=== PATIENT | female | born 1985 | race Caucasian/White ===

== ENCOUNTER 2016-12-16 18:37 | Inpatient (IN) | payer BC ==
[~2016-12-16] VITALS: Ht 162.6 cm; Wt 90.0 kg
[2016-12-16] MEDS ORDERED: ONDANSETRON (ODT) 4 MG TAB ODT STA (20:29)
[2016-12-16] MEDS ORDERED: morphine 10 MG INJ IM ONE (20:30)
[2016-12-16] MEDS ORDERED: ONDANSETRON 4 MG INJ IV STA (20:49)
[2016-12-16] MEDS ORDERED: morphine 10 MG INJ IV ONE (21:00)
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
[2016-12-16 21:58] LABS: BASOPHIL # 0.1 10^3/ul (0.0-0.1); BASOPHILS % 0.3 % (0.0-2.0); EOSINOPHILS % 0.1 % (0.0-7.0); HEMATOCRIT 40.1 % (37.0-47.0); HEMOGLOBIN 13.5 g/dl (12.0-16.0); LYMPHOCYTES % 10.3 % (15.0-51.0); MEAN CORPUSCULAR HEMOGLOBIN 28.7 pg (29.0-33.0); MEAN CORPUSCULAR HGB CONC 33.8 g/dl (32.0-37.0); MEAN CORPUSCULAR VOLUME 84.8 fl (82.0-101.0); MEAN PLATELET VOLUME 9.1 fl (7.4-10.4); MONOCYTE # 0.4 10^3/ul (0.3-0.9); MONOCYTES % 1.9 % (0.0-11.0); NEUTROPHIL # 17.3 10^3/ul (1.6-7.5); NEUTROPHILS % 87.4 % (39.0-77.0); PLATELET COUNT 367 10^3/UL (140-440); RED BLOOD COUNT 4.72 10^6/ul (4.20-5.40); RED CELL DISTRIBUTION WIDTH 13.1 % (11.5-14.5); UNCORRECTED WBC 19.8 10^3/ul (4.8-10.8); WHITE BLOOD COUNT 19.8 10^3/ul (4.8-10.8)
[2016-12-16 21:59] LABS: CONDITION 1; INR 0.95; PARTIAL THROMBOPLASTIN TIME 29.8 Sec (25.0-35.0); PROTIME 12.7 Sec (12.2-14.2)
[2016-12-16 22:06] LABS: ALBUMIN 4.2 g/dl (3.3-4.9)
[2016-12-16 22:07] LABS: POTASSIUM 4.3 mmol/L (3.5-5.1)
[2016-12-16 22:09] LABS: ALBUMIN/GLOBULIN RATIO 1.16; BILIRUBIN,INDIRECT 0.1 mg/dl (0-1.1); BILIRUBIN,TOTAL 0.1 mg/dl (0.2-1.3); CREATININE 0.72 mg/dl (0.44-1.00); TOTAL PROTEIN 7.8 g/dl (6.1-8.1)
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
[2016-12-17] MEDS ORDERED: ACETAMINOPHEN 325 MG TAB PO PRN (01:00)
[2016-12-17] MEDS ORDERED: morphine 4 MG/ML VIAL IV STA (05:04)
[2016-12-17] MEDS: ONDANSETRON 4 MG INJ IV PRN ×2 (05:08→12:20)
[2016-12-17] MEDS: DEXTROSE 5%-0.45% NACL 1,000 ML IV SCH ×3 (07:36→21:10)
[2016-12-17] MEDS ORDERED: morphine 2 MG INJ IV PRN (08:00)
[2016-12-17] MEDS ORDERED: NACL 0.9% 3 ML SYG IV SCH (08:00)
[2016-12-17] MEDS ORDERED: ACETAMINOPHEN 650 MG SUPP PR PRN (08:00)
[2016-12-17] MEDS ORDERED: ONDANSETRON 4 MG INJ IV PRN (08:00)
[2016-12-17 10:18] LABS: BASOPHILS % 0.1 % (0.0-2.0); HEMATOCRIT 35.9 % (37.0-47.0); HEMOGLOBIN 12.2 g/dl (12.0-16.0); LYMPHOCYTES # 2.3 10^3/ul (0.8-2.9); LYMPHOCYTES % 19.1 % (15.0-51.0); MEAN CORPUSCULAR HEMOGLOBIN 28.7 pg (29.0-33.0); MEAN CORPUSCULAR VOLUME 84.6 fl (82.0-101.0); MEAN PLATELET VOLUME 8.7 fl (7.4-10.4); MONOCYTE # 0.7 10^3/ul (0.3-0.9); MONOCYTES % 5.8 % (0.0-11.0); NEUTROPHIL # 8.8 10^3/ul (1.6-7.5); PLATELET COUNT 334 10^3/UL (140-440); RED BLOOD COUNT 4.25 10^6/ul (4.20-5.40); RED CELL DISTRIBUTION WIDTH 13.3 % (11.5-14.5); UNCORRECTED WBC 11.8 10^3/ul (4.8-10.8); WHITE BLOOD COUNT 11.8 10^3/ul (4.8-10.8)
[2016-12-17 10:22] LABS: CONDITION 1
[2016-12-17 10:29] LABS: ALBUMIN 3.8 g/dl (3.3-4.9)
[2016-12-17 10:30] LABS: POTASSIUM 3.9 mmol/L (3.5-5.1)
[2016-12-17 10:32] LABS: ALBUMIN/GLOBULIN RATIO 1.11; BILIRUBIN,INDIRECT 0.2 mg/dl (0-1.1); BILIRUBIN,TOTAL 0.2 mg/dl (0.2-1.3); CREATININE 0.74 mg/dl (0.44-1.00); TOTAL PROTEIN 7.2 g/dl (6.1-8.1)
[2016-12-17 10:33] LABS: CALCIUM 8.6 mg/dl (8.4-10.2)
[2016-12-17] MEDS: PIPER-TAZO 3.375 GM IV (PMX) 100 ML IVPB SCH ×3 (11:21→23:40)
[2016-12-17] MEDS: morphine 4 MG/ML VIAL IV PRN ×2 (12:20→21:10)
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
[2016-12-17 14:01] VITALS: TEMP 98.4
[2016-12-17 15:06] VITALS: BP 122/79; PULSE 105; RESP 20
[2016-12-17 15:07] VITALS: Ht 162.6 cm; Wt 90.0 kg
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
[2016-12-17 21:49] VITALS: BP 147/75; RESP 20
--- NOTE | 2016-12-17 23:10 | RADRPT ---
PROCEDURE: CT of the right upper extremity without contrast CLINICAL INDICATION: Post traumatic right arm pain. Humerus fracture. TECHNIQUE: CT of the right upper extremity is performed from the proximal right humeral diaphysis through the mid the radius/ulna shaft at 2 mm sections without contrast media. Coronal and sagittal reformatted images are submitted. An additional 3-D series is submitted. CTDI = 36.91 mGy; DLP = 1 058.33 mGy-cm COMPARISON: X-ray left humerus 12/16/2016 FINDINGS: Osseous structures: The fracture lucency involving the medial aspect of the distal humeral diaphysi s courses in an oblique manner to breach the posterior and medial cortices consistent with comminuti on. The interposed fracture fragment triangular in morphology along the medial aspect at the fractu re site is estimated at 7 cm in cranial caudal dimension. On the axial images at the fracture site there are 3 separate fragments that are major in appearance including the mentioned separate fragmen t, the separation of the fragments estimated at 1 cm. The dominant distal fracture fragment has korey e a mild varus angulation of approximately 10 degrees. The additional fracture lucency courses in a longitudinal manner through the medial epicondyle and extends to the articular surface between the trochlea and capitellum. The radial head and proximal ulna are intact and there is no evidence of e lbow dislocation. Soft tissues: A small lipohemarthrosis is present and there is diffuse stranding of the subcutaneou s fat posterior to the elbow at the level of the joint. There is no evidence of focal hematoma or m uscular abnormality RPTAT:HJJR IMPRESSION: 1. There are 3 major fracture lucencies and 3 major fragments to the comminuted, mildly displaced, i ntra-articular distal right humerus fracture, the interposed fragment of approximately 7 cm in crani al caudal dimension is along the medial aspect at the fracture site and is from the proxim al and distal major fragments by approximately 1 cm. 2. Mild varus angulation of the major distal fragment. 3. Longitudinal fracture component extends into the elbow joint involving the articular surface betw een the capitellum and trochlea. 4. No evidence of fracture involving the proximal radius or ulna. David Oconnor, Physician Date Time Electronically viewed and signed by David Oconnor Physician on 12/17/2016 23:10 JR/
[2016-12-18] MEDS: DEXTROSE 5%-0.45% NACL 1,000 ML IV SCH ×3 (03:36→23:29)
[2016-12-18] MEDS: morphine 4 MG/ML VIAL IV PRN ×2 (04:18→10:24)
[2016-12-18] MEDS: PANTOPRAZOLE 40 MG INJ IV SCH (05:20)
[2016-12-18] MEDS: PIPER-TAZO 3.375 GM IV (PMX) 100 ML IVPB SCH ×4 (05:20→23:28)
[2016-12-18 07:08] LABS: BASOPHILS % 0.3 % (0.0-2.0); EOSINOPHILS % 0.2 % (0.0-7.0); HEMATOCRIT 34.7 % (37.0-47.0); HEMOGLOBIN 11.7 g/dl (12.0-16.0); LYMPHOCYTES # 2.3 10^3/ul (0.8-2.9); LYMPHOCYTES % 20.5 % (15.0-51.0); MEAN CORPUSCULAR HEMOGLOBIN 28.8 pg (29.0-33.0); MEAN CORPUSCULAR HGB CONC 33.7 g/dl (32.0-37.0); MEAN CORPUSCULAR VOLUME 85.3 fl (82.0-101.0); MEAN PLATELET VOLUME 8.8 fl (7.4-10.4); MONOCYTE # 0.7 10^3/ul (0.3-0.9); MONOCYTES % 6.5 % (0.0-11.0); NEUTROPHIL # 8.2 10^3/ul (1.6-7.5); NEUTROPHILS % 72.5 % (39.0-77.0); PLATELET COUNT 315 10^3/UL (140-440); RED BLOOD COUNT 4.06 10^6/ul (4.20-5.40); RED CELL DISTRIBUTION WIDTH 13.4 % (11.5-14.5); UNCORRECTED WBC 11.3 10^3/ul (4.8-10.8); WHITE BLOOD COUNT 11.3 10^3/ul (4.8-10.8)
[2016-12-18 07:16] LABS: CONDITION 1
[2016-12-18 07:21] LABS: POTASSIUM 3.5 mmol/L (3.5-5.1)
[2016-12-18 07:24] LABS: CREATININE 0.69 mg/dl (0.44-1.00); PHOSPHORUS 3.2 mg/dl (2.5-4.9)
[2016-12-18 07:25] LABS: CALCIUM 8.1 mg/dl (8.4-10.2); MAGNESIUM 2.1 mg/dl (1.7-2.5)
[2016-12-18 07:53] VITALS: BP 104/62; RESP 21
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
[2016-12-18 20:48] VITALS: BP 125/66; RESP 16
[2016-12-19] MEDS: morphine 4 MG/ML VIAL IV PRN ×3 (00:03→17:05)
[2016-12-19] MEDS: PIPER-TAZO 3.375 GM IV (PMX) 100 ML IVPB SCH ×4 (05:55→23:41)
[2016-12-19] MEDS: PANTOPRAZOLE 40 MG INJ IV SCH (05:56)
[2016-12-19 07:02] LABS: BASOPHIL # 0.1 10^3/ul (0.0-0.1); BASOPHILS % 0.4 % (0.0-2.0); EOSINOPHILS % 0.3 % (0.0-7.0); HEMATOCRIT 36.8 % (37.0-47.0); HEMOGLOBIN 12.4 g/dl (12.0-16.0); LYMPHOCYTES # 3.3 10^3/ul (0.8-2.9); LYMPHOCYTES % 26.1 % (15.0-51.0); MEAN CORPUSCULAR HEMOGLOBIN 28.8 pg (29.0-33.0); MEAN CORPUSCULAR HGB CONC 33.9 g/dl (32.0-37.0); MEAN PLATELET VOLUME 8.2 fl (7.4-10.4); MONOCYTE # 0.7 10^3/ul (0.3-0.9); MONOCYTES % 5.4 % (0.0-11.0); NEUTROPHIL # 8.5 10^3/ul (1.6-7.5); NEUTROPHILS % 67.8 % (39.0-77.0); PLATELET COUNT 304 10^3/UL (140-440); RED BLOOD COUNT 4.32 10^6/ul (4.20-5.40); RED CELL DISTRIBUTION WIDTH 13.1 % (11.5-14.5); UNCORRECTED WBC 12.5 10^3/ul (4.8-10.8); WHITE BLOOD COUNT 12.5 10^3/ul (4.8-10.8)
[2016-12-19 07:06] LABS: CONDITION 1
[2016-12-19 07:23] LABS: POTASSIUM 3.7 mmol/L (3.5-5.1)
[2016-12-19 07:26] LABS: CREATININE 0.69 mg/dl (0.44-1.00)
[2016-12-19 07:27] LABS: CALCIUM 8.2 mg/dl (8.4-10.2)
[2016-12-19 08:09] VITALS: BP 133/84; RESP 20
[2016-12-19] MEDS: DEXTROSE 5%-0.45% NACL 1,000 ML IV SCH ×3 (09:36→19:36)
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
[2016-12-19 21:37] VITALS: BP 128/80; RESP 16
[2016-12-20] VITALS (31 sets, daily range): BP systolic 107–151; BP diastolic 56–76; PULSE 66–116; RESP 6–29
[2016-12-20] MEDS: morphine 4 MG/ML VIAL IV PRN (02:30)
[2016-12-20] MEDS: PIPER-TAZO 3.375 GM IV (PMX) 100 ML IVPB SCH ×4 (05:55→22:56)
[2016-12-20] MEDS: PANTOPRAZOLE 40 MG INJ IV SCH (05:55)
[2016-12-20 05:56] LABS: BASOPHILS % 0.3 % (0.0-2.0); EOSINOPHILS # 0.1 10^3/ul (0.0-0.5); EOSINOPHILS % 0.5 % (0.0-7.0); HEMATOCRIT 34.9 % (37.0-47.0); HEMOGLOBIN 12.1 g/dl (12.0-16.0); LYMPHOCYTES % 24.5 % (15.0-51.0); MEAN CORPUSCULAR HEMOGLOBIN 29.3 pg (29.0-33.0); MEAN CORPUSCULAR HGB CONC 34.7 g/dl (32.0-37.0); MEAN CORPUSCULAR VOLUME 84.3 fl (82.0-101.0); MEAN PLATELET VOLUME 8.5 fl (7.4-10.4); MONOCYTE # 0.6 10^3/ul (0.3-0.9); MONOCYTES % 4.5 % (0.0-11.0); NEUTROPHIL # 8.6 10^3/ul (1.6-7.5); NEUTROPHILS % 70.2 % (39.0-77.0); PLATELET COUNT 337 10^3/UL (140-440); RED BLOOD COUNT 4.13 10^6/ul (4.20-5.40); RED CELL DISTRIBUTION WIDTH 12.8 % (11.5-14.5); UNCORRECTED WBC 12.2 10^3/ul (4.8-10.8); WHITE BLOOD COUNT 12.2 10^3/ul (4.8-10.8)
[2016-12-20] MEDS: DEXTROSE 5%-0.45% NACL 1,000 ML IV SCH ×2 (06:02→16:43)
[2016-12-20 06:03] LABS: POTASSIUM 3.7 mmol/L (3.5-5.1)
[2016-12-20 06:04] LABS: CONDITION 1
[2016-12-20 06:06] LABS: CREATININE 0.69 mg/dl (0.44-1.00)
[2016-12-20 06:07] LABS: CALCIUM 8.4 mg/dl (8.4-10.2)
[2016-12-20] MEDS ORDERED: MIDAZOLAM 1 MG/ML 2 ML INJ ONE ×3 (07:54→11:37)
[2016-12-20] MEDS ORDERED: ROPIVACAINE 0.5 % 30 ML VIAL ONE (07:55)
--- NOTE | 2016-12-20 07:58 | HPN ---
Date/Time of Note Date/Time of Note DATE: 12/20/16 TIME: 07:57 Interval H&P Admission Note Pt. seen H&P reviewed: No system changes KEON HSU MD Dec 20, 2016 07:58
[2016-12-20] MEDS ORDERED: POLYMYXIN/BACITRACIN 1L IRRIG ONE (08:16)
[2016-12-20] MEDS ORDERED: ONDANSETRON 4 MG INJ ONE (08:44)
[2016-12-20] MEDS ORDERED: PROPOFOL 20 ML ONE (08:44)
[2016-12-20] MEDS ORDERED: ROCURONIUM 50 MG INJ ONE ×4 (08:44→12:52)
[2016-12-20] MEDS ORDERED: METOCLOPRAMIDE 10 MG INJ ONE (08:44)
--- NOTE | 2016-12-20 08:46 | RADRPT ---
PROCEDURE: Chest x-ray CLINICAL INDICATION: Cough TECHNIQUE: Chest single view COMPARISON: None FINDINGS: The heart is normal in size. The pulmonary vessels are normal in caliber. The lungs are clear. Th e costophrenic angles are sharp. The visualized bony thorax is unremarkable. IMPRESSION: No acute cardiopulmonary disease. Low lung volumes No evidence of pneumothorax RPTAT: HH .Damián Moncada MD, MD Date Time Electronically viewed and signed by .Damián Moncada MD, on 12/20/2016 08:45 .W/
[2016-12-20] MEDS ORDERED: SUCCINYLCHOLINE CHLORIDE 100 MG/5 ML SYG IV ONE (08:50)
[2016-12-20] MEDS ORDERED: FENTAnyl 50 MCG/ML VIAL ONE (09:05)
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
[2016-12-20] MEDS ORDERED: CEFAZOLIN 1 GM INJ ONE (10:43)
[2016-12-20] MEDS ORDERED: MEPERIDINE 25 MG INJ IV PRN (12:00)
[2016-12-20] MEDS ORDERED: METOCLOPRAMIDE 10 MG INJ IV PRN (12:00)
[2016-12-20] MEDS ORDERED: DIPHENHYDRAMINE 50 MG INJ IV PRN (12:00)
[2016-12-20] MEDS ORDERED: ONDANSETRON 4 MG INJ IV PRN (12:00)
[2016-12-20] MEDS ORDERED: HYDROmorphONE (0.2 MG/ML) 10ML SYG IV PRN ×2 (12:00)
[2016-12-20 13:09] LABS: ADD UMIC NO; URINE BILIRUBIN (Dip) NEGATIVE (NEGATIVE); URINE BLOOD (Dip) NEGATIVE (NEGATIVE); URINE COLOR LT. YELLOW (YELLOW); URINE GLUCOSE (Dip) NEGATIVE (NEGATIVE); URINE KETONES (Dip) NEGATIVE (NEGATIVE); URINE LEUKOCYTE ESTERASE (Dip) NEGATIVE (NEGATIVE); URINE NITRITE (Dip) NEGATIVE (NEGATIVE); URINE TOTAL PROTEIN (Dip) NEGATIVE (NEGATIVE); URINE UROBILINOGEN (Dip) 1.0 E.U./dL (0.1-1.0)
[2016-12-20] MEDS ORDERED: NEOSTIGMINE 3 MG/3 ML SYRINGE ONE (14:42)
[2016-12-20] MEDS ORDERED: GLYCOPYRROLATE 0.4 MG INJ ONE (14:42)
[2016-12-20] MEDS ORDERED: NACL 0.9% 3 ML SYG IV SCH (15:00)
[2016-12-20] MEDS: HYDROmorphONE (0.2 MG/ML) 10ML SYG IV PRN ×2 (15:34→15:46)
[2016-12-20 15:42] LABS: BASOPHILS % 0.2 % (0.0-2.0); HEMATOCRIT 30.3 % (37.0-47.0); HEMOGLOBIN 10.3 g/dl (12.0-16.0); LYMPHOCYTES # 2.4 10^3/ul (0.8-2.9); LYMPHOCYTES % 12.5 % (15.0-51.0); MEAN CORPUSCULAR HEMOGLOBIN 28.7 pg (29.0-33.0); MEAN CORPUSCULAR HGB CONC 34.1 g/dl (32.0-37.0); MEAN CORPUSCULAR VOLUME 84.3 fl (82.0-101.0); MEAN PLATELET VOLUME 8.3 fl (7.4-10.4); MONOCYTE # 0.6 10^3/ul (0.3-0.9); MONOCYTES % 3.2 % (0.0-11.0); NEUTROPHIL # 16.4 10^3/ul (1.6-7.5); NEUTROPHILS % 84.1 % (39.0-77.0); PLATELET COUNT 387 10^3/UL (140-440); RED BLOOD COUNT 3.59 10^6/ul (4.20-5.40); UNCORRECTED WBC 19.5 10^3/ul (4.8-10.8); WHITE BLOOD COUNT 19.5 10^3/ul (4.8-10.8)
[2016-12-20 15:57] LABS: CONDITION 1
--- NOTE | 2016-12-20 16:08 | RADRPT ---
PROCEDURE: XR Elbow. CLINICAL INDICATION: Postoperative evaluation TECHNIQUE: 2 views of the right elbow performed. COMPARISON: None. FINDINGS: There is plate and screw fixation of the distal humerus and the proximal ulna with a cannulated scre w traversing the distal humerus transversely. Alignment is anatomic. There is soft tissue swelling and gas with medial skin james. IMPRESSION: 1. Plate and screw fixation of the distal humerus and proximal ulna as above. RPTAT: UU .Chevy Saxena MD, Date Time Electronically viewed and signed by .Chevy Saxena MD, on 12/20/2016 16:08 .K/
--- NOTE | 2016-12-20 16:11 | RADRPT ---
PROCEDURE: XR right humerus CLINICAL INDICATION: Postoperative evaluation TECHNIQUE: 3 views of the right humerus COMPARISON: Radiographs of the right humerus December 16, 2016 FINDINGS: There is plate and screw fixation of the distal humerus and the proximal ulna in anatomic alignment. There is surrounding soft tissue swelling and gas as well as skin james. No new fractures seen. IMPRESSION: Plate and screw fixation of the distal humerus and proximal ulna as above. RPTAT: UU .Chevy Saxena MD, MD Date Time Electronically viewed and signed by .Chevy Saxena MD, MD on 12/20/2016 16:11 .K/
--- NOTE | 2016-12-20 16:14 | RADRPT ---
PROCEDURE: Intraoperative imaging of the right elbow with fluoroscopy. CLINICAL INDICATION: Right elbow Intraoperative. TECHNIQUE: 8 images of the lumbar spine were obtained in the operating room with an image intensif ier. No radiologist was in attendance. 46 seconds of fluoroscopy time was used. COMPARISON: Radiographs of the right elbow December 16, 2016 FINDINGS: Intraoperative images show plate and screw fixation of the distal humerus and the proximal ulna. IMPRESSION: 1. Satisfactory intraoperative imaging of the right elbow. Please see separately dictated operativ e note for further evaluation. RPTAT: UU .Chevy Saxena MD, Date Time Electronically viewed and signed by .Chevy Saxena MD, on 12/20/2016 16:13 .K/
[2016-12-20] MEDS: CEFAZOLIN 1 GM/50 ML (PMX) 50 ML IVPB SCH ×2 (16:43→22:56)
[2016-12-20] MEDS: morphine 2 MG INJ IV PRN ×4 (18:09→23:56)
[2016-12-21] MEDS: DEXTROSE 5%-0.45% NACL 1,000 ML IV SCH ×2 (01:36→03:11)
[2016-12-21] MEDS: morphine 2 MG INJ IV PRN ×4 (01:38→16:08)
[2016-12-21] MEDS ORDERED: morphine (ER) 30 MG TAB PO ONE (02:30)
[2016-12-21] MEDS ORDERED: HYDROCODONE/APAP (10/325) TAB PO PRN (02:30)
[2016-12-21] MEDS: morphine 4 MG/ML VIAL IV PRN ×2 (03:11→08:15)
[2016-12-21] MEDS: PANTOPRAZOLE 40 MG INJ IV SCH (05:20)
[2016-12-21] MEDS: PIPER-TAZO 3.375 GM IV (PMX) 100 ML IVPB SCH ×4 (05:20→23:40)
[2016-12-21 06:31] LABS: BASOPHILS % 0.2 % (0.0-2.0); EOSINOPHILS % 0.1 % (0.0-7.0); HEMATOCRIT 25.1 % (37.0-47.0); HEMOGLOBIN 8.5 g/dl (12.0-16.0); LYMPHOCYTES # 1.9 10^3/ul (0.8-2.9); LYMPHOCYTES % 14.3 % (15.0-51.0); MEAN CORPUSCULAR HEMOGLOBIN 29.2 pg (29.0-33.0); MEAN CORPUSCULAR VOLUME 85.9 fl (82.0-101.0); MEAN PLATELET VOLUME 8.4 fl (7.4-10.4); MONOCYTE # 0.8 10^3/ul (0.3-0.9); MONOCYTES % 5.8 % (0.0-11.0); NEUTROPHIL # 10.7 10^3/ul (1.6-7.5); NEUTROPHILS % 79.6 % (39.0-77.0); PLATELET COUNT 330 10^3/UL (140-440); RED BLOOD COUNT 2.92 10^6/ul (4.20-5.40); RED CELL DISTRIBUTION WIDTH 13.5 % (11.5-14.5); UNCORRECTED WBC 13.4 10^3/ul (4.8-10.8); WHITE BLOOD COUNT 13.4 10^3/ul (4.8-10.8)
[2016-12-21 06:33] LABS: CONDITION 1
[2016-12-21 06:40] LABS: POTASSIUM 3.7 mmol/L (3.5-5.1)
[2016-12-21 06:43] LABS: CREATININE 0.63 mg/dl (0.44-1.00)
[2016-12-21 06:44] LABS: CALCIUM 7.4 mg/dl (8.4-10.2)
[2016-12-21] MEDS: CEFAZOLIN 1 GM/50 ML (PMX) 50 ML IVPB SCH (06:58)
[2016-12-21 08:21] VITALS: BP 101/58; PULSE 95; RESP 18
[2016-12-21] MEDS: morphine (ER) 30 MG TAB PO SCH ×2 (10:07→23:41)
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
--- NOTE | 2016-12-21 17:43 | PN ---
DATE: 12/21/2016 Afebrile. Considerable swelling involving the right upper extremity along with the pain. ____ exam ination of the neurovascular condition did not show any obvious neurologic compromise, so far. Post op x-rays of the right humerus and right elbow is satisfactory. Hemoglobin and hematocrit at this t inder is 8.5/25.11. We will keep the right upper extremity elevated to reduce the swelling as much as possible. We need to keep an eye for a while because of the severity of injury and the extensive n ature of the surgery. Dictated By: NOE HSU MD IK/NTS Conf#: [id number] DID#: [id number] CC: DARIO MICHEL MD;*EndCC*
[2016-12-21] MEDS: ACETAMINOPHEN 325 MG TAB PO PRN (19:00)
[2016-12-21 20:32] VITALS: BP 122/68; RESP 18
[2016-12-21 23:40] VITALS: BP 115/65; PULSE 84; RESP 20
[2016-12-22] MEDS: morphine 2 MG INJ IV PRN ×4 (00:42→06:22)
[2016-12-22 04:57] VITALS: BP 121/65; PULSE 92
[2016-12-22] MEDS: PIPER-TAZO 3.375 GM IV (PMX) 100 ML IVPB SCH ×4 (06:22→22:56)
[2016-12-22] MEDS: PANTOPRAZOLE (EC) 40 MG TAB PO SCH (06:22)
[2016-12-22 06:27] LABS: BASOPHIL # 0.1 10^3/ul (0.0-0.1); BASOPHILS % 0.4 % (0.0-2.0); EOSINOPHILS % 0.1 % (0.0-7.0); HEMATOCRIT 25.2 % (37.0-47.0); HEMOGLOBIN 8.6 g/dl (12.0-16.0); LYMPHOCYTES % 13.1 % (15.0-51.0); MEAN CORPUSCULAR HEMOGLOBIN 29.4 pg (29.0-33.0); MEAN CORPUSCULAR HGB CONC 34.3 g/dl (32.0-37.0); MEAN CORPUSCULAR VOLUME 85.7 fl (82.0-101.0); MEAN PLATELET VOLUME 8.2 fl (7.4-10.4); MONOCYTES % 6.5 % (0.0-11.0); NEUTROPHIL # 12.5 10^3/ul (1.6-7.5); NEUTROPHILS % 79.9 % (39.0-77.0); PLATELET COUNT 330 10^3/UL (140-440); RED BLOOD COUNT 2.95 10^6/ul (4.20-5.40); RED CELL DISTRIBUTION WIDTH 13.2 % (11.5-14.5); UNCORRECTED WBC 15.6 10^3/ul (4.8-10.8); WHITE BLOOD COUNT 15.6 10^3/ul (4.8-10.8)
[2016-12-22 06:29] LABS: CONDITION 1
[2016-12-22 06:48] LABS: POTASSIUM 3.8 mmol/L (3.5-5.1)
[2016-12-22 06:51] LABS: CREATININE 0.61 mg/dl (0.44-1.00)
[2016-12-22 06:52] LABS: CALCIUM 7.7 mg/dl (8.4-10.2)
[2016-12-22] MEDS: HYDROCODONE/APAP (5/325) TAB PO PRN ×2 (07:56→16:06)
[2016-12-22 08:55] VITALS: BP 111/66; RESP 22
[2016-12-22] MEDS: morphine (ER) 30 MG TAB PO SCH ×2 (09:00→21:14)
[2016-12-22] MEDS: BISACODYL (EC) 5 MG TAB PO PRN (16:30)
[2016-12-22] MEDS: morphine 4 MG/ML VIAL IV PRN (19:40)
[2016-12-22 20:18] VITALS: BP 117/68; RESP 20
[2016-12-22] MEDS: DOCUSATE SODIUM 100 MG CAP PO SCH (21:14)
[2016-12-22 22:00] VITALS: PULSE 107
[2016-12-22] MEDS: ACETAMINOPHEN 325 MG TAB PO PRN (22:54)
[2016-12-22 23:00] VITALS: PULSE 108
[2016-12-23] MEDS: PIPER-TAZO 3.375 GM IV (PMX) 100 ML IVPB SCH ×4 (05:12→22:54)
[2016-12-23] MEDS: PANTOPRAZOLE (EC) 40 MG TAB PO SCH (05:18)
[2016-12-23] MEDS: morphine 2 MG INJ IV PRN (05:18)
[2016-12-23 06:13] LABS: POTASSIUM 3.7 mmol/L (3.5-5.1)
[2016-12-23 06:15] LABS: CREATININE 0.57 mg/dl (0.44-1.00)
[2016-12-23 06:16] LABS: CALCIUM 7.8 mg/dl (8.4-10.2)
[2016-12-23 08:04] VITALS: BP 124/71; RESP 18
[2016-12-23] MEDS: morphine (ER) 30 MG TAB PO SCH ×2 (09:00→21:00)
[2016-12-23 09:31] LABS: BASOPHILS % 0.2 % (0.0-2.0); EOSINOPHILS % 0.2 % (0.0-7.0); HEMATOCRIT 24.8 % (37.0-47.0); HEMOGLOBIN 8.4 g/dl (12.0-16.0); LYMPHOCYTES # 2.7 10^3/ul (0.8-2.9); LYMPHOCYTES % 16.3 % (15.0-51.0); MEAN CORPUSCULAR HEMOGLOBIN 29.3 pg (29.0-33.0); MEAN CORPUSCULAR VOLUME 86.3 fl (82.0-101.0); MEAN PLATELET VOLUME 8.3 fl (7.4-10.4); MONOCYTES % 6.2 % (0.0-11.0); NEUTROPHIL # 12.5 10^3/ul (1.6-7.5); NEUTROPHILS % 77.1 % (39.0-77.0); PLATELET COUNT 397 10^3/UL (140-440); RED BLOOD COUNT 2.88 10^6/ul (4.20-5.40); RED CELL DISTRIBUTION WIDTH 13.9 % (11.5-14.5); UNCORRECTED WBC 16.3 10^3/ul (4.8-10.8); WHITE BLOOD COUNT 16.3 10^3/ul (4.8-10.8)
[2016-12-23 09:32] LABS: CONDITION 1
[2016-12-23] MEDS: DOCUSATE SODIUM 100 MG CAP PO SCH ×2 (09:37→21:30)
[2016-12-23] MEDS: BISACODYL (EC) 5 MG TAB PO PRN (16:00)
--- NOTE | 2016-12-23 16:10 | PN ---
DATE: 12/23/2016 THIRD POSTOPERATIVE DAY: Is afebrile with stable vital signs. Much less edema after elevation of t he right upper extremity. Large leukocytosis with a WBC count of 16.3. H and H is 8.4/24.8. Poste rior splint was removed and the dressings were changed. To be up and around with the right upper ex tremity in a sling. Still has a mild wrist drop. Dictated By: NOE DANIELSON/RAQUEL Conf#: [id number] DID#: [id number]
--- NOTE | 2016-12-23 17:13 | OPR ---
DATE OF OPERATION: 12/20/2016 PREOPERATIVE DIAGNOSIS: Severely comminuted intracondylar and supracondylar shaft fracture of the r ight humerus in the right upper extremity. POSTOPERATIVE DIAGNOSIS: Severely comminuted intracondylar and supracondylar and shaft fracture of the right humerus in the right upper extremity. PROCEDURE PERFORMED: 1. Osteotomy of the olecranon process for surgical exposure. 2. Open reduction and internal fixation of the intercondylar, supracondylar, and shaft fracture of the right humerus utilizing a periarticular small fragment plate and screws for the right humerus. ANESTHESIA: General anesthesia. SURGEON: Noe Nicole MD PROCEDURE AND FINDINGS: Under general anesthesia, the patient was placed in prone position upon the operating table. Usual prep and drape was done, exposing the right upper extremity. Right humerus and right elbow was approached through the posterior longitudinal incision. Because o f the nature of the fracture olecranon process had to be osteotomized in order to expose the distal humerus, including supracondylar and intercondylar area. With difficulties, the fractures were expo sed. The incision had to be extended upward to include the entire fracture. The ulnar nerve was ex posed and protected and excluded out of the surgical field. Radial nerve then had to be identified and excluded from the surgical field. With considerable difficulties, the fractures were identified and again with some difficulties, it was reduced. In order to keep the fracture in a reduced posit ion while the plate is applied, multiple sutures using PDS were applied to the fracture site, keepin g the fracture reduced. Finally, a periarticular plate for humeral fracture, especially the lateral plate, which happened to be the longest plate in the set, was selected and internal fixation was ca rried out. Additional intercondylar screw had to be placed in order to maintain the satisfactory re duction and stability. After the satisfactory internal fixation of the humeral fracture itself, the osteotomized olecranon process was then put back and stabilized with the internal fixation. Finall y, after irrigation and hemostasis, closure of the incision was carried out using 0 Vicryl for muscl e and fascia, and 2-0 Vicryl for subcutaneous tissues. Final skin closure was carried out with skin james. Usual sterile pressure dressings were applied. The entire right upper extremity then imm obilized in extension using long arm posterior splint. The patient tolerated the entire procedure very well and was sent to the recovery room in excellent condition. Dictated By: NOE DANIELSON/RAQUEL Conf#: [id number] DID#: [id number]
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
[2016-12-23 20:44] VITALS: BP 146/67; RESP 18
[2016-12-23] MEDS: ENOXAPARIN 40 MG/0.4 ML SYG SC SCH (21:35)
[2016-12-24] MEDS: PANTOPRAZOLE (EC) 40 MG TAB PO SCH (05:35)
[2016-12-24] MEDS: PIPER-TAZO 3.375 GM IV (PMX) 100 ML IVPB SCH ×4 (05:35→22:53)
[2016-12-24] MEDS: ACETAMINOPHEN 325 MG TAB PO PRN ×2 (06:01→20:26)
[2016-12-24 06:13] LABS: POTASSIUM 3.4 mmol/L (3.5-5.1)
[2016-12-24 06:16] LABS: CREATININE 0.59 mg/dl (0.44-1.00)
[2016-12-24 06:17] LABS: MAGNESIUM 2.4 mg/dl (1.7-2.5)
[2016-12-24 06:37] LABS: HEMATOCRIT 23.3 % (37.0-47.0); HEMOGLOBIN 7.6 g/dl (12.0-16.0); RED BLOOD COUNT 2.69 10^6/ul (4.20-5.40); UNCORRECTED WBC 16.1 10^3/ul (4.8-10.8); WHITE BLOOD COUNT 16.1 10^3/ul (4.8-10.8)
[2016-12-24 06:38] LABS: BASOPHIL # 0.1 10^3/ul (0.0-0.1); BASOPHILS % 0.4 % (0.0-2.0); EOSINOPHILS % 0.1 % (0.0-7.0); LYMPHOCYTES # 2.4 10^3/ul (0.8-2.9); MEAN CORPUSCULAR HEMOGLOBIN 28.3 pg (29.0-33.0); MEAN CORPUSCULAR HGB CONC 32.6 g/dl (32.0-37.0); MEAN CORPUSCULAR VOLUME 86.6 fl (82.0-101.0); MEAN PLATELET VOLUME 9.9 fl (7.4-10.4); MONOCYTE # 0.8 10^3/ul (0.3-0.9); NEUTROPHIL # 12.6 10^3/ul (1.6-7.5); NEUTROPHILS % 78.3 % (39.0-77.0); NUCLEATED RED BLOOD CELLS% 0.2 /100WBC (0.0-0.0); PLATELET COUNT 468 10^3/UL (140-440); RED CELL DISTRIBUTION WIDTH 13.2 % (11.5-14.5)
[2016-12-24] MEDS: morphine (ER) 30 MG TAB PO SCH ×2 (09:00→20:32)
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
[2016-12-24] MEDS ORDERED: POTASSIUM CHLORIDE 250 ML IVPB SCH (11:30)
[2016-12-24] MEDS: DOCUSATE SODIUM 100 MG CAP PO SCH ×2 (11:36→20:32)
[2016-12-24 19:41] VITALS: BP 128/79; RESP 18
[2016-12-24] MEDS: ENOXAPARIN 40 MG/0.4 ML SYG SC SCH (20:30)
[2016-12-25] MEDS: PIPER-TAZO 3.375 GM IV (PMX) 100 ML IVPB SCH ×4 (05:26→23:02)
[2016-12-25] MEDS: PANTOPRAZOLE (EC) 40 MG TAB PO SCH (05:26)
[2016-12-25 06:20] LABS: ADD SCAN DIFF NO
[2016-12-25 06:46] LABS: IRON 46 ug/dl (35-150)
[2016-12-25 06:46] LABS: POTASSIUM 3.8 mmol/L (3.5-5.1)
[2016-12-25 06:47] LABS: BASOPHIL # 0.1 10^3/ul (0.0-0.1); BASOPHILS % 0.6 % (0.0-2.0); EOSINOPHILS # 0.2 10^3/ul (0.0-0.5); EOSINOPHILS % 1.2 % (0.0-7.0); HEMATOCRIT 25.4 % (37.0-47.0); HEMOGLOBIN 8.1 g/dl (12.0-16.0); LYMPHOCYTES # 3.2 10^3/ul (0.8-2.9); LYMPHOCYTES % 22.3 % (15.0-51.0); MEAN CORPUSCULAR HEMOGLOBIN 28.5 pg (29.0-33.0); MEAN CORPUSCULAR HGB CONC 31.9 g/dl (32.0-37.0); MEAN CORPUSCULAR VOLUME 89.4 fl (82.0-101.0); MEAN PLATELET VOLUME 10.2 fl (7.4-10.4); MONOCYTE # 0.8 10^3/ul (0.3-0.9); MONOCYTES % 5.3 % (0.0-11.0); NEUTROPHIL # 9.8 10^3/ul (1.6-7.5); NEUTROPHILS % 68.9 % (39.0-77.0); NUCLEATED RED BLOOD CELLS # 0.1 10^3/ul (0.0-0.0); NUCLEATED RED BLOOD CELLS% 0.6 /100WBC (0.0-0.0); PLATELET COUNT 557 10^3/UL (140-415); RED BLOOD COUNT 2.84 10^6/ul (4.20-5.40); RED CELL DISTRIBUTION WIDTH 13.3 % (11.5-14.5); WHITE BLOOD COUNT 14.3 10^3/ul (4.8-10.8)
[2016-12-25 06:49] LABS: CREATININE 0.56 mg/dl (0.44-1.00)
[2016-12-25 06:50] LABS: CALCIUM 8.4 mg/dl (8.4-10.2)
[2016-12-25 06:55] LABS: TOTAL IRON BINDING CAPACITY 232 ug/dl (241-421)
[2016-12-25 08:41] VITALS: BP 119/65; RESP 18
[2016-12-25] MEDS: morphine (ER) 30 MG TAB PO SCH ×2 (09:00→20:23)
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
[2016-12-25] MEDS: DOCUSATE SODIUM 100 MG CAP PO SCH ×2 (12:06→20:23)
[2016-12-25 19:53] VITALS: BP 120/75; RESP 18
[2016-12-25] MEDS: ENOXAPARIN 40 MG/0.4 ML SYG SC SCH (20:25)
[2016-12-26 01:54] VITALS: BP 132/68; PULSE 91; RESP 18
[2016-12-26] MEDS: ACETAMINOPHEN 325 MG TAB PO PRN ×2 (02:03→14:57)
[2016-12-26] MEDS: PIPER-TAZO 3.375 GM IV (PMX) 100 ML IVPB SCH ×4 (04:33→23:58)
[2016-12-26] MEDS: PANTOPRAZOLE (EC) 40 MG TAB PO SCH (05:28)
[2016-12-26 06:17] LABS: ADD SCAN DIFF NO
[2016-12-26 06:25] LABS: BASOPHIL # 0.1 10^3/ul (0.0-0.1); BASOPHILS % 0.7 % (0.0-2.0); EOSINOPHILS # 0.3 10^3/ul (0.0-0.5); HEMOGLOBIN 7.7 g/dl (12.0-16.0); LYMPHOCYTES # 2.8 10^3/ul (0.8-2.9); LYMPHOCYTES % 21.1 % (15.0-51.0); MEAN CORPUSCULAR HEMOGLOBIN 27.6 pg (29.0-33.0); MEAN CORPUSCULAR HGB CONC 30.8 g/dl (32.0-37.0); MEAN CORPUSCULAR VOLUME 89.6 fl (82.0-101.0); MEAN PLATELET VOLUME 9.8 fl (7.4-10.4); MONOCYTE # 0.6 10^3/ul (0.3-0.9); MONOCYTES % 4.8 % (0.0-11.0); NEUTROPHIL # 9.2 10^3/ul (1.6-7.5); NEUTROPHILS % 69.1 % (39.0-77.0); NUCLEATED RED BLOOD CELLS # 0.1 10^3/ul (0.0-0.0); PLATELET COUNT 611 10^3/UL (140-415); RED BLOOD COUNT 2.79 10^6/ul (4.20-5.40); RED CELL DISTRIBUTION WIDTH 13.4 % (11.5-14.5); WHITE BLOOD COUNT 13.2 10^3/ul (4.8-10.8)
[2016-12-26] MEDS: morphine (ER) 30 MG TAB PO SCH ×2 (09:00→20:42)
[2016-12-26] MEDS: DOCUSATE SODIUM 100 MG CAP PO SCH ×2 (09:00→20:43)
[2016-12-26 09:41] VITALS: BP 133/69; RESP 20
[2016-12-26 09:46] LABS: POTASSIUM 4.3 mmol/L (3.5-5.1)
[2016-12-26 09:48] LABS: CREATININE 0.67 mg/dl (0.44-1.00)
[2016-12-26 09:49] LABS: CALCIUM 8.8 mg/dl (8.4-10.2)
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
[2016-12-26] MEDS: FERROUS FUMARATE (SR) TAB PO SCH ×2 (11:31→20:43)
[2016-12-26 20:03] VITALS: BP 135/96; RESP 18
[2016-12-26] MEDS: ENOXAPARIN 40 MG/0.4 ML SYG SC SCH (21:51)
[2016-12-27 02:00] VITALS: BP 117/69; PULSE 97
[2016-12-27] MEDS: PIPER-TAZO 3.375 GM IV (PMX) 100 ML IVPB SCH ×3 (05:14→16:58)
[2016-12-27] MEDS: PANTOPRAZOLE (EC) 40 MG TAB PO SCH (05:14)
[2016-12-27 06:17] LABS: ADD SCAN DIFF NO
[2016-12-27 06:20] LABS: BASOPHIL # 0.1 10^3/ul (0.0-0.1); BASOPHILS % 0.4 % (0.0-2.0); EOSINOPHILS # 0.2 10^3/ul (0.0-0.5); EOSINOPHILS % 1.7 % (0.0-7.0); HEMATOCRIT 24.4 % (37.0-47.0); HEMOGLOBIN 7.7 g/dl (12.0-16.0); LYMPHOCYTES # 2.1 10^3/ul (0.8-2.9); LYMPHOCYTES % 17.2 % (15.0-51.0); MEAN CORPUSCULAR HEMOGLOBIN 28.2 pg (29.0-33.0); MEAN CORPUSCULAR HGB CONC 31.6 g/dl (32.0-37.0); MEAN CORPUSCULAR VOLUME 89.4 fl (82.0-101.0); MEAN PLATELET VOLUME 9.6 fl (7.4-10.4); MONOCYTE # 0.6 10^3/ul (0.3-0.9); MONOCYTES % 4.9 % (0.0-11.0); NEUTROPHIL # 8.9 10^3/ul (1.6-7.5); NEUTROPHILS % 74.1 % (39.0-77.0); NUCLEATED RED BLOOD CELLS # 0.1 10^3/ul (0.0-0.0); NUCLEATED RED BLOOD CELLS% 0.7 /100WBC (0.0-0.0); PLATELET COUNT 638 10^3/UL (140-415); RED BLOOD COUNT 2.73 10^6/ul (4.20-5.40); RED CELL DISTRIBUTION WIDTH 13.7 % (11.5-14.5); WHITE BLOOD COUNT 12.1 10^3/ul (4.8-10.8)
[2016-12-27 06:37] LABS: ALBUMIN 3.5 g/dl (3.3-4.9)
[2016-12-27 06:38] LABS: POTASSIUM 3.8 mmol/L (3.5-5.1)
[2016-12-27 06:40] LABS: CREATININE 0.7 mg/dl (0.44-1.00)
[2016-12-27 06:41] LABS: CALCIUM 8.7 mg/dl (8.4-10.2); PHOSPHORUS 4.2 mg/dl (2.5-4.9)
[2016-12-27 08:17] VITALS: BP 129/78; RESP 19
[2016-12-27] MEDS: morphine (ER) 30 MG TAB PO SCH (09:00)
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
[2016-12-27] MEDS ORDERED: AMOX1TAB10 PO (09:12)
[2016-12-27] MEDS ORDERED: HYDR-3498 PO (09:12)
[2016-12-27] MEDS ORDERED: TYL650R PR (09:12)
[2016-12-27] MEDS ORDERED: FERR1TAB14 PO (09:12)
[2016-12-27] MEDS ORDERED: DOCU-216 PO (09:12)
[2016-12-27] MEDS ORDERED: MORP15TA92 PO (09:12)
[2016-12-27] MEDS: DOCUSATE SODIUM 100 MG CAP PO SCH (09:27)
[2016-12-27] MEDS: FERROUS FUMARATE (SR) TAB PO SCH (09:27)
--- NOTE | 2016-12-27 17:54 | PN ---
DATE: 12/27/2016 Seven days postop, afebrile, much less swelling around the right upper extremity, able to make a fis t. No signs of neurologic compromise involving the radial nerve or ulnar nerve. Postop x-ray is in good alignment. Okay to be discharged any time for further followup in 1 week as an outpatient wit h repeated x-rays. Dictated By: NOE DANIELSON/RAQUEL Conf#: [id number] DID#: [id number]
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
== END 2016-12-27 18:30 | disposition home or self-care (01) | DRG 493 ==
LOC: FTE 18:37 → MS2 12-17 00:55
PROVIDERS: ADMIT Internal Medicine; ATTEND Internal Medicine
PROC: 0PSF04Z Reposition Right Humeral Shaft with Internal Fixation Device, Open Approach (ICD-10-PCS; principal; 2016-12-20 08:00)
DX: S42.441A Displaced fracture (avulsion) of medial epicondyle of right humerus, initial encounter for closed fracture (principal); S42.351A Displaced comminuted fracture of shaft of humerus, right arm, initial encounter for closed fracture; R65.10 Systemic inflammatory response syndrome (SIRS) of non-infectious origin without acute organ dysfunction; D62 Acute posthemorrhagic anemia; D72.828 Other elevated white blood cell count; M54.9 Dorsalgia, unspecified; D50.9 Iron deficiency anemia, unspecified; E87.6 Hypokalemia; M21.331 Wrist drop, right wrist; E66.9 Obesity, unspecified; Z68.34 Body mass index [BMI] 34.0-34.9, adult; V49.50XA Passenger injured in collision with unspecified motor vehicles in traffic accident, initial encounter; Y92.410 Unspecified street and highway as the place of occurrence of the external cause
CPT/HCPCS: 70450; 71010; 72125; 72128; 72131; 73070; 73200; 80048; 80053; 80069; 81003; 82962; 83540; 83735; 84100; 84703; 85025; 85610; 85730; 86850; 86900; 86901; 86920; 87040; 87086; 97165; C9113; J0330; J0690; J1170; J1200; J1650; J2250; J2270; J2405; J2543; J2710; J2765; J2795; J3010; J3480; J7042